=== PATIENT | male | born 1990 | race Caucasian/White ===

== ENCOUNTER 2016-12-07 02:32 | Emergency (ER) | payer BC, OTHER ==
--- NOTE | 2016-12-07 02:36 | PDOC ---
History of Present Illness - General Chief Complaint: Pain Stated Complaint: RT FOOT PAIN - History of Present Illness Initial Comments: 12/07/16 02:56 This 26-year-old man with a history of autism is brought into the emergency room by his mother with a one-day history of right foot/lower leg edema and pain. Approximately 24 hours ago, patient indicated to his mother that his right heel area was painful. She states that she massages the plantar aspect of the heel and then had the patient wear postop shoe(belonged to family member who had surgery). Tonight, just prior to coming here, the patient indicated to his mother that the lateral aspect of his ankle and lower leg were painful. She noted that the area was more swollen than it was earlier in the day and proceeded here. No known history of trauma. Patient has not been engaging in any unusual physical activity. PMH Autism Right arm fracture (age 13) Medications Until very recently patient was taking Risperdal; this has been changed to another psychiatric drug (mother cannot recall name) No known ALLERGIES Past History - Past Medical History Allergies/Adverse Reactions: Allergies Allergy/AdvReac Type Severity Reaction Status Date / Time No Known Allergies Allergy Unverified 05/04/15 17:09 Home Medications: Ambulatory Orders Risperidone [Risperdal -] 0.5 mg PO TID 05/04/15 Acetaminophen W/ Codeine Liq [Tylenol W/Codeine Oral Solution -] 10 ml PO Q8H PRN #60 ml MDD 20 ml 12/07/16 - Psycho/Social/Smoking Cessation Hx Anxiety: No (AUTISIM) Suicidal Ideation: No Smoking History: Never smoked Have you smoked in the past 12 months: No Hx Alcohol Use: No Drug/Substance Use Hx: No Substance Use Type: None Review of Systems - Review of Systems Able to Perform ROS?: No Comments:: Patient is nonverbal *Physical Exam - Physical Exam Comments: GENERAL: Adult male, awake, nonverbal but without obvious signs of distress HEAD: Normal with no signs of trauma. EXTREMITIES: Right lower extremitymild edema, faint ecchymosis lateral aspect of lower leg (approximately 4 cm proximal to lateral malleolus) Moderate edema,, faint ecchymosis just distal to lateral malleolus No deformity evident; no ligamentous instability No posterior calf/popliteal/thigh tenderness,cords or edema evident Remainder of the extremity exam is normal NEUROLOGICAL: Cranial nerves II through XII grossly intact. Moving all 4 extremities equally SKIN: Warm, Dry, normal turgor, no rashes or lesions noted. Progress Note - Progress Note Progress Note: Exam notable for edema and ecchymosis (faint) of lateral aspect of the lower leg /ankle area. Patient did not appear to be uncomfortable when area was palpated Because of the patient's autism, mother states that his response to pain is unreliable (for example, when the patient broke his arm at age 13, he did not register any sign of discomfort when the fractured arm was manipulated). X-rays of right tib-fib and right ankle performed. Preliminary interpretation of radiologic studies reveals no evidence of fracture or dislocation. Results discussed with mother. Jae wrap and stirrup splint (Velcro) applied to the right lower leg/ankle area. Rest/ice/elevation of right lower leg recommended over the next few days. The patient takes Tylenol suspension for mild/ moderate pain and Tylenol with codeine suspension for severe pain [60 mL prescription for Tylenol with Codeine No. 3 suspension sent to family pharmacy with instructions of 10 mL up to 3 times a day for severe pain] Patient will be brought to family orthopedist if persistent swelling or pain occurs *DC/Admit/Observation/Transfer Diagnosis at time of Disposition: Right ankle sprain Qualifiers: Encounter type: initial encounter Involved ligament of ankle: calcaneofibular ligament Qualified Code(s): S93.411A - Sprain of calcaneofibular ligament of right ankle, initial encounter - Discharge Dispostion Disposition: HOME Condition at time of disposition: Stable - Prescriptions Prescriptions: Acetaminophen W/ Codeine Liq [Tylenol W/Codeine Oral Solution -] 10 ml PO Q8H PRN #60 ml MDD 20 ml PRN Reason: Severe Pain - Patient Instructions Printed Discharge Instructions: DI for Ankle Sprain Additional Instructions: Ice/elevation of right ankle as much as possible over the next 2 days Jae wrap/ankle splint during the day for the next 5 days Tylenol suspension as needed for [id number] pain Tylenol with codeine suspension 2 teaspoons up to 3 times a day as needed for severe pain Follow-up with your orthopedist if persistent pain/swelling occurs
[2016-12-07 02:41] VITALS: BP 143/87; PULSE 117; TEMP 98.9; BMI 33.9
== END 2016-12-07 03:40 | disposition home or self-care (01) ==
LOC: FER 02:32
PROC: 2W3SX1Z Immobilization of Right Foot using Splint (ICD-10-PCS; principal; 2016-12-07)
DX: S93.411A Sprain of calcaneofibular ligament of right ankle, initial encounter (principal); X58.XXXA Exposure to other specified factors, initial encounter; Y93.9 Activity, unspecified; Y92.9 Unspecified place or not applicable; F84.0 Autistic disorder
CPT/HCPCS: 73590-TC-RT; 73610-TC-RT; 99281-25

== ENCOUNTER 2017-02-26 20:44 | Emergency (ER) | payer BC, OTHER ==
--- NOTE | 2017-02-26 20:46 | PDOC ---
History of Present Illness - General History Source: Patient, Parent(s) Exam Limitations: Other - History of Present Illness Initial Comments: 02/26/17 21:23 The patient is a 26 year old male, with significant past medical history of autism, who presents today with two lacerations on his nose and a small laceration on the left corner of the lower lip. Mom states that it was an unwitnessed fall and cannot find any blood around the house. The patient is not complaining of any pain at this time. Mom states that there is no noticeable change in behavior. Allergies: none reported Review of systems General: No fevers or chills, no weakness, no weight loss HEENT: No change in vision. No sore throat,. No ear pain Respiratory:No cough, or wheezing. Musculoskeletal: No joint or muscle pain or swelling Neurologic: No headache, vertigo, dizziness or loss of consciousness Psychiatric: nor depression Skin: +2 lacerations on the nose, +laceration on the left lower lip. No rashes or easy bruising Allergic: no skin or latex allergy All other systems reviewed and normal Physical Exam GENERAL: The patient is awake, alert, and fully oriented, in no acute distress. EYES: Pupils equal, round and reactive to light, extraocular movements intact, sclera anicteric, conjunctiva clear. EXTREMITIES: Normal range of motion, no edema. NEUROLOGICAL: Normal speech, normal gait. PSYCH: Normal mood, normal affect. SKIN: +Superficial laceration to the bridge of the nose and the left nare externally. Also very small superficial laceration corner of the left mouth. Warm, Dry, normal turgor, no rashes or lesions noted. <Surekha Ryan - Last Filed: 02/26/17 21:23> - General History Source: Parent(s) Exam Limitations: Other (autistic) - History of Present Illness Initial Comments: 02/26/17 22:36 A portion of this note was documented by scribe services under my direction. I have reviewed the details of the note, within reason, and agree with the documentation. The case summary and management plan written by me. Assessment and plan: This is a 26-year-old autistic male brought in by his mother for evaluation of superficial laceration/scratch on his nose. It was difficult to clean the area secondary to patient's agitation and autism. We were able to clean the area and left to see that the area that was bleeding was a scratch and not anything that needed glue or sutures. The laceration was covered with bacitracin and a and 8 and patient discharged home with his mother. <Garth Escobar I - Last Filed: 02/26/17 22:37> - General Chief Complaint: Laceration Stated Complaint: MINOR LACERATION TO NOSE AND LOWER LIP Time Seen by Provider: 02/26/17 20:46 Past History <Surekha Ryan - Last Filed: 02/26/17 21:23> - Past Medical History Psychiatric Problems: Yes (AUTISM) - Psycho/Social/Smoking Cessation Hx Anxiety: No (AUTISIM) Suicidal Ideation: No Smoking History: Never smoked Have you smoked in the past 12 months: No Hx Alcohol Use: No Drug/Substance Use Hx: No Substance Use Type: None <Garth Escobar I - Last Filed: 02/26/17 22:37> - Past Medical History Allergies/Adverse Reactions: Allergies Allergy/AdvReac Type Severity Reaction Status Date / Time No Known Allergies Allergy Verified 02/26/17 20:53 Home Medications: Ambulatory Orders Brexpiprazole [Rexulti] 1 mg PO DAILY 02/26/17 *Physical Exam - Vital Signs Last Vital Signs Temp Pulse Resp BP Pulse Ox 109 H 20 150/102 99 02/26/17 20:45 02/26/17 20:45 02/26/17 20:45 02/26/17 20:45 <Surekha Ryan - Last Filed: 02/26/17 21:23> *DC/Admit/Observation/Transfer - Attestations Scribe Attestion: 02/26/17 21:24 Documentation prepared by OZZY Dietrich, acting as medical coordinator pesticide use for Garth Escobar MD. <Surekha Ryan - Last Filed: 02/26/17 21:23> - Discharge Dispostion Admit: No <Garth Escobar I - Last Filed: 02/26/17 22:37> Diagnosis at time of Disposition: Laceration of nose Qualifiers: Encounter type: initial encounter Qualified Code(s): S01.21XA - Laceration without foreign body of nose, initial encounter - Discharge Dispostion Disposition: HOME Condition at time of disposition: Stable - Patient Instructions Additional Instructions: Change the Band-Aid as needed reapply bacitracin and a new Band-Aid until the laceration has scabbed in. Tylenol as needed for pain. Return to the emergency department immediately with ANY new, persistent or worsening symptoms. Continue any medications as previously prescribed by your physician. You should follow up with your primary doctor as soon as possible regarding today's emergency department visit. . Please make sure your doctor reviews the results of your emergency evaluation. Thank you for coming to the Emergency Department today for your care. It was a pleasure to see you today. Please note that your evaluation is INCOMPLETE until you follow-up with your doctor.
[2017-02-26 21:00] VITALS: BP 150/102; PULSE 109; BMI 46.0
== END 2017-02-26 21:28 | disposition home or self-care (01) ==
LOC: FER 20:44
DX: S01.21XA Laceration without foreign body of nose, initial encounter (principal); S01.511A Laceration without foreign body of lip, initial encounter; F84.0 Autistic disorder; W19.XXXA Unspecified fall, initial encounter; Y93.9 Activity, unspecified; Y92.009 Unspecified place in unspecified non-institutional (private) residence as the place of occurrence of the external cause
CPT/HCPCS: 99281-25

== ENCOUNTER 2020-08-06 19:43 | Emergency (ER) | payer BC, OTHER | END 2020-08-06 20:44 | disposition home or self-care (01) | LOC: FER 19:43 | CPT/HCPCS: 99281-25 ==

== ENCOUNTER 2022-12-31 11:05 | Emergency (ER) | payer BC, OTHER ==
[2022-12-31 11:24] VITALS: BP 134/84; RESP 19; TEMP 98.4; BMI 51.5
[2022-12-31] MEDS ORDERED: ACETAMINOPHEN 325 MG TABLET (FP) PO ONE (12:11)
[2022-12-31] MEDS ORDERED: IBUPROFEN 600 MG TABLET (FP) PO ONE ×2 (12:11→12:17)
[2022-12-31] MEDS ORDERED: ACETAMINOPHEN 325 MG TABLET (FP) ONE (12:17)
[2022-12-31 14:34] VITALS: PULSE 105
== END 2022-12-31 15:58 | disposition home or self-care (01) ==
LOC: JER 11:05
PROC: 2W3QX1Z Immobilization of Right Lower Leg using Splint (ICD-10-PCS; principal; 2022-12-31)
DX: R07.89 Other chest pain (principal); M25.571 Pain in right ankle and joints of right foot; M79.622 Pain in left upper arm; S93.401A Sprain of unspecified ligament of right ankle, initial encounter; X58.XXXA Exposure to other specified factors, initial encounter
CPT/HCPCS: 71046-TC-FY; 71101-TC-LT-FY; 73590-TC-RT-FY; 73610-TC-RT-FY; 73630-TC-RT-FY; 93005; 93010; 99284-25

== ENCOUNTER 2023-12-30 17:28 | Emergency (ER) | payer BC, OTHER ==
[2023-12-30 17:37] VITALS: TEMP 98.6; BMI 52.3
[2023-12-30 20:10] LABS: EPI CELLS 19 /uL (0-25.1); HYALINE CASTS 3 /uL (0-3.1); PH,URINE 5.5 (5.0-8.0); URINE APPEARANCE CLEAR; URINE BACTERIA 40 /uL (0-1359); URINE BILIRUBIN 1+ (NEGATIVE); URINE COLOR DK YELLOW; URINE GLUCOSE (UA) NEGATIVE (NEGATIVE); URINE KETONE TRACE (NEGATIVE); URINE LEUK ESTERASE NEGATIVE (NEGATIVE); URINE NITRITE NEGATIVE (NEGATIVE); URINE PROTEIN 1+ (NEGATIVE); URINE RBC 19 /uL (0-23.9); URINE WBC 51 /uL (0-25.8)
[2023-12-30] MEDS ORDERED: MIDAZOLAM HCL 5 MG/1 ML Single Dose Vial ONE (20:13)
[2023-12-30] MEDS: MIDAZOLAM HCL 5 MG/1 ML Single Dose Vial IM ONE (20:21)
[2023-12-30] MEDS: LIDOCAINE 2.5%/PRILOCAINE 2.5% 30 GRAM TUBE TP ONE (20:48)
[2023-12-30] MEDS ORDERED: diazePAM 5 MG TABLET ONE ×3 (20:51→23:55)
[2023-12-30] MEDS: diazePAM 5 MG TABLET PO ONE ×2 (20:58→22:14)
[2023-12-30] MEDS: KETAMINE HCL 200 MG/20 ML VIAL IM ONE ×2 (21:24)
[2023-12-30] MEDS: KETAMINE HCL 200 MG/20 ML VIAL IVPUSH ONE (21:24)
[2023-12-31] MEDS: diazePAM 5 MG TABLET PO ONE (00:01)
[2023-12-31] MEDS ORDERED: MIDAZOLAM HCL 5 MG/1 ML Single Dose Vial ONE (00:34)
[2023-12-31] MEDS: MIDAZOLAM HCL 5 MG/1 ML Single Dose Vial IM ONE (01:20)
[2023-12-31 01:54] VITALS: BP 134/72; PULSE 108; RESP 16
== END 2023-12-31 03:57 | disposition home or self-care (01) ==
LOC: JER 17:28
DX: R10.31 Right lower quadrant pain (principal); R11.10 Vomiting, unspecified; R19.7 Diarrhea, unspecified
CPT/HCPCS: 74176-TC; 81003; 87086; 99284-25

== ENCOUNTER 2025-05-17 17:24 | Observation (INO) | payer OTHER, BC ==
[2025-05-17] MEDS ORDERED: GLUCAGON 1 MG KIT ONE (19:02)
[2025-05-17] MEDS: GLUCAGON 1 MG KIT IVPUSH ONE (19:16)
[2025-05-17 19:21] LABS: ABSOLUTE IMMATURE GRANULOCYTES 0.08 x10^3/uL (0.0-0.031); BASOPHILS # 0.13 x10^3/uL (0.01-0.08); EOSINOPHIL % 3.6 % (0.8-7.0); EOSINOPHILS # 0.58 x10^3/uL (0.04-0.54); MCHC 31.5 g/dl (32.3-36.5); MEAN CELL VOLUME 88.0 fl (79.0-92.2); MEAN PLT VOLUME 9.8 fl (9.4-12.4); MONOCYTE # 0.93 x10^3/uL (0.30-0.82); MONOCYTE % 5.8 % (5.3-12.2); RDW 14.3 % (12.0-15.6)
[2025-05-17 19:28] LABS: INR 1.15 (0.83-1.09); PROTHROMBIN TIME (PATIENT) 12.6 SEC (9.7-13.0)
[2025-05-17 19:34] LABS: GLUCOSE,RANDOM 101.0 mg/dL (74-106); TOT PROT 7.6 g/dl (6.4-8.2)
[2025-05-17 19:36] LABS: CO2 25.0 mmol/L (21-32)
[2025-05-17 19:37] LABS: ALK PHOS 91.0 U/L (40-150)
[2025-05-17 19:40] LABS: CREATININE 1.02 mg/dL (0.55-1.3); SGOT/AST 40.0 U/L (5-34); SGPT/ALT 40.0 U/L (0-55)
[2025-05-17] MEDS ORDERED: MIDAZOLAM HCL 2 MG/2 ML SINGLE DOSE VIAL ONE (21:44)
[2025-05-17] MEDS ORDERED: PROPOFOL 40 ML ONE (21:45)
[2025-05-17] MEDS ORDERED: LIDOCAINE HCL/PF 2% SDV 5ML VIAL ONE ×2 (21:45→22:32)
[2025-05-17] MEDS ORDERED: KETAMINE HCL 200 MG/20 ML VIAL ONE (21:53)
[2025-05-17] MEDS ORDERED: SUGAMMADEX SODIUM 200 MG/2 ML VIAL ONE (22:29)
[2025-05-17] MEDS ORDERED: ONDANSETRON 4 MG/2 ML VIAL ONE (22:31)
[2025-05-17] MEDS ORDERED: SODIUM CHLORIDE 0.9% P/F 10 ML VIAL IJ ONE (22:32)
[2025-05-18] MEDS ORDERED: LACTATED RINGERS SOLUTION 1,000 ML IV SCH (01:15)
[2025-05-18] MEDS: LACTATED RINGERS SOLUTION 1,000 ML IV SCH (01:50)
[2025-05-18 02:46] VITALS: BMI 53.8
[2025-05-18 07:32] LABS: ABSOLUTE IMMATURE GRANULOCYTES 0.05 x10^3/uL (0.0-0.031); BASOPHILS # 0.09 x10^3/uL (0.01-0.08); EOSINOPHIL % 1.6 % (0.8-7.0); EOSINOPHILS # 0.20 x10^3/uL (0.04-0.54); MCHC 31.9 g/dl (32.3-36.5); MEAN CELL VOLUME 87.3 fl (79.0-92.2); MEAN PLT VOLUME 11.0 fl (9.4-12.4); MONOCYTE # 0.68 x10^3/uL (0.30-0.82); MONOCYTE % 5.3 % (5.3-12.2); RDW 14.5 % (12.0-15.6)
[2025-05-18 08:03] LABS: GLUCOSE,RANDOM 100.0 mg/dL (74-106)
[2025-05-18 08:04] LABS: CO2 23.0 mmol/L (21-32)
[2025-05-18 08:09] LABS: CREATININE 0.73 mg/dL (0.55-1.3)
[2025-05-18] MEDS: PANTOPRAZOLE 40 MG TABLET PO SCH (09:15)
[2025-05-18] MEDS ORDERED: PANTOPRAZOLE SODIUM 40 MG VIAL IVPUSH SCH (10:00)
[2025-05-18] MEDS ORDERED: PANTOPRAZOLE 40 MG TABLET PO SCH ×2 (10:00)
[2025-05-18 10:47] VITALS: BP 136/86; PULSE 95; RESP 16; TEMP 97.8
[2025-05-18] MEDS: PANTOPRAZOLE SOD 40 MG SUSPENSION PACKET PO SCH (11:24)
[2025-05-18 13:40] LABS: TOT PROT 6.4 g/dl (6.4-8.2)
[2025-05-18 13:42] LABS: ALK PHOS 69.0 U/L (40-150)
[2025-05-18 13:45] LABS: SGOT/AST 58.0 U/L (5-34); SGPT/ALT 27.0 U/L (0-55)
== END 2025-05-18 12:55 | disposition home or self-care (01) ==
LOC: JER 17:24 → JERBED 19:41 → J4S 23:08
PROVIDERS: ADMIT Family Medicine; ATTEND Family Medicine
PROC: 3E033GC Introduction of Other Therapeutic Substance into Peripheral Vein, Percutaneous Approach (ICD-10-PCS; 2025-05-17)
PROC: 0DC98ZZ Extirpation of Matter from Duodenum, Via Natural or Artificial Opening Endoscopic (ICD-10-PCS; principal; 2025-05-17 23:00)
DX: T17.828A Food in other parts of respiratory tract causing other injury, initial encounter (principal); X58.XXXA Exposure to other specified factors, initial encounter; F84.0 Autistic disorder; K20.90 Esophagitis, unspecified without bleeding; K22.89 Other specified disease of esophagus; K29.70 Gastritis, unspecified, without bleeding; K31.89 Other diseases of stomach and duodenum; R13.19 Other dysphagia; E66.01 Morbid (severe) obesity due to excess calories; R13.10 Dysphagia, unspecified
CPT/HCPCS: 36415; 70360-TC-FY; 71045-TC-FY; 80048; 80053; 80076; 85025; 85610; 88305-TC; 88341-TC; 88342-TC; 93005; 93010; 94760; 96374; 99291; G0378